=== PATIENT | female | born 1955 | race Hispanic/Latino ===

== ENCOUNTER 2017-08-26 07:09 | Observation (INO) | payer BC ==
[2017-08-25 15:34] LABS: BASOPHILS % (AUTO) 0.8 % (0.0-5.0); HEMATOCRIT 42.7 % (36-48); LYMPHOCYTES % (AUTO) 25.2 % (21.0-51.0); MEAN CORPUSCULAR HEMOGLOBIN 29.8 pg (27.0-33.0); MEAN CORPUSCULAR HGB CONC 34.5 g/dL (32.0-36.0); MEAN CORPUSCULAR VOLUME 86.4 fL (79-99); PLATELET COUNT (AUTO) 288 K/uL (130-400); RED BLOOD CELL COUNT(AUTO) 4.94 MIL/uL (4.00-5.50); RED CELL DISTRIBUTION WIDTH 13.9 % (11.0-15.5); WHITE BLOOD COUNT (AUTO) 11.2 K/uL (4.8-10.8)
[2017-08-25 15:43] VITALS: BP 158/78
[~2017-08-26] VITALS: Ht 149.9 cm; Wt 58.2 kg
[2017-08-26] VITALS (27 sets, daily range): BP systolic 101–172; BP diastolic 47–91
[2017-08-26] MEDS ORDERED: AMLO10TA2 PO (07:39)
[2017-08-26] MEDS ORDERED: IBUP-2071 PO (07:39)
[2017-08-26] MEDS ORDERED: DOCU-116 PO (07:39)
[2017-08-26] MEDS ORDERED: TRAM50TA4 PO (07:39)
[2017-08-26] MEDS: CEFAZOLIN SODIUM 1 GM VIAL IVP ONE ×2 (07:56→09:49)
[2017-08-26] MEDS ORDERED: LACTATED RINGERS 1000ML 1,000 ML IV SCH ×2 (08:00→16:15)
[2017-08-26] MEDS ORDERED: WATER FOR INJECTION,STERILE 20 ML VIAL IJ ONE (08:00)
[2017-08-26] MEDS ORDERED: PROPOFOL 10 MG/ML 20ML VIAL IV ONE (08:54)
[2017-08-26] MEDS ORDERED: LIDOCAINE HCL 2% JELLY 5 ML ONE (08:54)
[2017-08-26] MEDS ORDERED: ROCURONIUM BROMIDE 10MG/1ML 5ML VL ONE (08:54)
[2017-08-26] MEDS ORDERED: LIDOCAINE HCL MPF 1% 5ML VIAL ONE (08:54)
[2017-08-26] MEDS ORDERED: LIDOCAINE PF 2% 5ML ABBOJECT ONE (08:54)
[2017-08-26] MEDS ORDERED: DEXAMETHASONE SOD PHOSPHATE 10MG/ML 1ML VIAL ONE (08:54)
[2017-08-26] MEDS ORDERED: MIDAZOLAM HCL 1 MG/ML 2ML VIAL ONE (08:54)
[2017-08-26] MEDS ORDERED: LIDOCAINE HCL 4% LTA SOL 4 ML VIAL ONE (08:54)
[2017-08-26] MEDS ORDERED: SODIUM CHLORIDE 0.9% 10 ML VIAL ONE (08:54)
[2017-08-26] MEDS ORDERED: NEOSTIGMINE 5MG/5ML SYR IV ONE (08:54)
[2017-08-26] MEDS ORDERED: PHENYLEPHRINE HCL 10 MG/ML 1ML VIAL IV ONE (08:54)
[2017-08-26] MEDS ORDERED: ONDANSETRON HCL 4 MG/2 ML VIAL ONE (08:54)
[2017-08-26] MEDS ORDERED: GLYCOPYRROLATE 0.2 MG/ML 5 ML VIAL ONE (08:54)
[2017-08-26] MEDS ORDERED: FENTANYL CITRATE PF 50 MCG/1 ML 2ML VIAL ONE ×2 (08:55→10:23)
[2017-08-26] MEDS ORDERED: ESTROGENS,CONJUGATED 0.625 MG/GM 42.5 GM VAG CRM VG ONE (10:45)
[2017-08-26] MEDS ORDERED: MEPERIDINE-PF 25 MG/ML SYG ONE (13:24)
[2017-08-26] MEDS ORDERED: PROMETHAZINE HCL 25 MG/ML 1ML AMPULE IM ONE (13:24)
[2017-08-26] MEDS ORDERED: HYDROCODONE/ACETAMINOPHEN 5/325 MG TAB PO PRN (16:15)
[2017-08-26] MEDS ORDERED: MEPERIDINE-PF 50 MG/ML SYG IVP PRN (16:15)
[2017-08-26] MEDS ORDERED: PROMETHAZINE HCL 25 MG/ML 1ML AMPULE IM PRN (16:15)
[2017-08-26] MEDS: HYDROCODONE/ACETAMINOPHEN 5/325 MG TAB PO PRN ×2 (17:53→23:25)
[2017-08-26] MEDS ORDERED: DEXTROSE 5%-LACTATED RINGERS 1,000 ML IV SCH (19:30)
[2017-08-27 00:34] VITALS: BP 106/58
[2017-08-27] MEDS ORDERED: IBUPROFEN 800 MG TAB PO PRN (04:30)
[2017-08-27] MEDS ORDERED: TRAMADOL HCL 50 MG TABLET PO SCH (04:30)
[2017-08-27 04:32] VITALS: BP 100/58
[2017-08-27] MEDS: HYDROCODONE/ACETAMINOPHEN 5/325 MG TAB PO PRN (05:47)
[2017-08-27 07:57] VITALS: BP 98/54
[2017-08-27] MEDS ORDERED: DOCUSATE SODIUM 100 MG CAP PO SCH (09:00)
[2017-08-27] MEDS ORDERED: AMLODIPINE BESYLATE 5 MG TAB PO SCH (09:00)
== END 2017-08-27 11:40 | disposition home or self-care (01) ==
LOC: DAH 07:09 → DAHIP 07:10 → WSH 12:15
PROVIDERS: ADMIT Obstetrics & Gynecology; ATTEND Obstetrics & Gynecology
DX: N39.3 Stress incontinence (female) (male) (principal); N81.2 Incomplete uterovaginal prolapse; I10 Essential (primary) hypertension; Z82.49 Family history of ischemic heart disease and other diseases of the circulatory system; Z83.3 Family history of diabetes mellitus
CPT/HCPCS: 36415; 57260; 85025; 86850; 86900; 86901; 96372; A4215; A4218; A4344; A4510; A4600; A4930; G0378 ×28; J0690; J1100; J2001; J2175; J2250; J2370; J2405; J2550; J2704; J2710; J3010 ×2; J3490 ×3; J7030; J7120

== ENCOUNTER → 2022-12-13 | Outpatient (CLI) | payer BC, OTHER ==
[~2022-12-13] MED LIST: AMLO-258 PO; DOCU-116 PO; IBUP-2071 PO; TRAM50TA4 PO
== END | disposition home or self-care (01) ==
LOC: RAH 09:24
PROVIDERS: ATTEND Internal Medicine
DX: R10.11 Right upper quadrant pain (principal)
CPT/HCPCS: 76700